=== PATIENT | female | born 1960 | race Caucasian/White ===

== ENCOUNTER 2019-11-01 06:00 | Inpatient (IN) | payer MEDICARE, OTHER ==
[2019-11-01 07:26] VITALS: BP 96/53
[2019-11-01] MEDS ORDERED: Acetaminophen 500 MG TAB PO PRN (09:27)
[2019-11-01] MEDS ORDERED: Maalox 30 mL Cup PO PRN (09:27)
[2019-11-01] MEDS ORDERED: Magnesium Hydroxide (MOM) 30 mL UDC PO PRN (09:27)
--- NOTE | 2019-11-01 12:35 | Psychiatric Evaluation ---
DATE OF SERVICE: 11/01/2019 IDENTIFYING DATA: The patient is a 59-year-old woman, resident of [facility]. Information obtained by directly interviewing the patient as well as reviewing the admission papers and they are reliable. JUSTIFICATION OF HOSPITALIZATION: The patient is admitted here on a voluntary basis in view of her agitation and aggressive behavior. CHIEF COMPLAINT: "I don't know, I did not do anything, they gave me a shot and they got me here." HISTORY OF PRESENT ILLNESS: This is the first psychiatric hospitalization to [facility] for this patient who is reported to have a long history of schizophrenia and lately has been getting easily out of control and aggressive and throwing things and destroying the property. The patient has been having difficult time to cope with the stress at this time. The patient's insight and judgment at this time are noted to be very much impaired. The patient has been downplaying everything that has been going on, but states that she needs to get back to [facility] right away. PAST PSYCHIATRIC HISTORY: Details are not known. The patient is being followed by Dr. Abreu on an outpatient basis. The patient is currently on Seroquel and lithium. Medical examination is requested to be done by Dr. Leong. SUBSTANCE ABUSE HISTORY: None. PHYSICAL OR SEXUAL ABUSE HISTORY: None. SOCIAL HISTORY: The patient is a resident of [facility]. 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 The patient has only one sister. The patient does not have any children. LEGAL PROBLEMS: None at this time. PHYSICAL OR SEXUAL ABUSE HISTORY: None. STRENGTH AND ASSETS: The patient is motivated. MENTAL STATUS EXAMINATION: The patient is a 59-year-old, looking her stated age, superficially cooperative. Eye contact is poor. Mood is noted to be irritable. Affect is constricted. Insight and judgment are noted to be still impaired. Impulse control is noted to be poor. Coping skills are noted to be poor. The patient has paranoia, but denies any command hallucinations. The patient has been having acute mood swings. The patient is not able to contract for safety. The patient has been downplaying all the problems and is stating that there is no reason for her to be in here, she needs to be out there at [facility]. The patient is alert and oriented to time, place, person and situation. Attention span and concentration are noted to be fair at this time. Short and long-term are noted to be intact. However, the patient's behavior is equally danger to self and others. DIAGNOSTIC IMPRESSION: AXIS I: Bipolar disorder, mixed, with psychotic symptoms. 1B: Rule out schizoaffective disorder. AXIS II: None. AXIS III: As per Dr. Leong. IMMEDIATE TREATMENT PLAN: The patient is going to be observed on inpatient unit, provided with supportive psychotherapy. The patient is going to be closely monitored. I encouraged her to participate in the groups and verbalize the concerns. Once stabilized, the patient is going to be discharged to [facility] to be followed up on an outpatient basis. JOB# [id number]
[2019-11-01] MEDS ORDERED: GLUCAGON HCl 1 MG KIT IM PRN (13:42)
--- NOTE | 2019-11-01 17:15 | Consultation ---
DATE OF CONSULTATION: 11/01/2019 INTERNAL MEDICINE CONSULTATION CHIEF COMPLAINT: Agitation. I am seeing this patient at the request of Dr. Lorenzana. HISTORY OF PRESENT ILLNESS: We have a 59-year-old female with bipolar, schizophrenia, who was transferred for agitation. The patient was not very cooperative and was agitated and screaming at the nursing staff. At this time, the patient denies any chest pain, shortness of breath. No nausea, vomiting, abdominal pain. PAST MEDICAL HISTORY: 1. COPD. 2. Diabetes. 3. Schizophrenia. PAST SURGICAL HISTORY: None. MEDICATIONS: List reviewed. ALLERGIES: None. SOCIAL HISTORY: Tobacco, IV drugs, ETOH negative. PHYSICAL EXAMINATION: VITAL SIGNS: Temperature is 97.0, pulse 55, respirations 18, blood pressure 196/53, satting 100% on room air. HEENT: Normocephalic, atraumatic head exam. NECK: Supple. CARDIOVASCULAR: Regular rate and rhythm. LUNGS: Clear. ABDOMEN: Soft, nontender. EXTREMITIES: No edema, cyanosis or clubbing. ASSESSMENT AND PLAN: 1. Diabetes. 2. Chronic obstructive pulmonary disease. 3. Schizophrenia. 4. Bipolar. The patient will be admitted for agitation. We will co-manage. JOB# [id number]
[2019-11-02] MEDS: Multivitamin Tab PO SCH (09:18)
--- NOTE | 2019-11-02 11:57 | Progress Notes ---
DATE: 11/02/2019 SUBJECTIVE: Staff was spoken to. The patient is interviewed. Mood is noted to be irritable. Affect is constricted. The patient's insight and judgment at this time are noted to be still impaired. The patient has been responding to internal stimuli. The patient is still suicidal. No homicidal ideation is noted. The patient is not able to contract for safety. ASSESSMENT: The patient is still grossly psychotic. PLAN: To continue the patient with the supportive therapy and followup. JOB# [id number]
--- NOTE | 2019-11-02 13:45 | Internal Medicine Prog Note ---
Internal Medicine Subjective - Subjective Service Date: 11/02/19 Patient seen and examined:: without staff Patient is:: awake Per staff patient has:: no adverse event, no episodes of fall Internal Medicine Objective - Results Recent Labs: Laboratory Last Values POC Glucose 100 MG/DL (70 - 105) 11/01/19 11:14 - Physical Exam Vitals and I&O: Vital Signs Temp 97.0 F 11/01/19 10:52 Pulse 55 11/01/19 10:52 Resp 18 11/02/19 08:00 BP 96/53 11/01/19 10:52 Pulse Ox 100 11/01/19 10:52 Intake & Output 11/01/19 11/02/19 11/02/19 18:59 06:59 18:59 Intake Total 2400 300 Balance 2400 300 Weight (lbs) 57.153 kg Intake: Oral 2400 300 Other: # Voids 0 # Bowel Movements 0 Weight Source Bedscale Active Medications: Current Medications Acetaminophen (Tylenol) 650 mg PO Q4H PRN PRN Reason: Pain (Mild 1-3) Stop: 12/31/19 09:26 Acetaminophen (Tylenol Extra Strength) 1,000 mg PO Q6H PRN PRN Reason: Pain (Moderate 4-6) Stop: 12/31/19 09:26 Al Hydrox/Mg Hydrox/Simethicone (Maalox) 30 ml PO Q4HR PRN PRN Reason: GI DISTRESS Stop: 12/31/19 09:26 Dextrose (Glutose 40%) 18.75 gm PO PRN PRN PRN Reason: Blood Glucose less than 70 Stop: 12/31/19 13:41 Glucagon (Glucagen) 1 mg IM PRN PRN PRN Reason: Blood Glucose less than 70 Stop: 12/31/19 13:41 Haloperidol (Haldol) 5 mg PO BID PRN; Protocol PRN Reason: Psychosis Stop: 12/31/19 16:59 Insulin Human Lispro (Humalog Insulin Sliding Scale) 0 units SUBQ ACHS TOR; Protocol Stop: 01/01/20 16:29 [place] Carbonate (Eskalith) 300 mg PO Q12HR TOR; Protocol Stop: 12/31/19 20:59 Last Admin: 11/02/19 09:17 Dose: 300 mg Lorazepam (Ativan) 0.5 mg PO Q4HR PRN; Protocol PRN Reason: Agitation Stop: 12/31/19 10:33 Magnesium Hydroxide (Milk Of Magnesia) 30 ml PO HS PRN PRN Reason: Constipation Multivitamins/Vitamin C (Theragran) 1 tab PO DAILY TOR Stop: 01/01/20 08:59 Last Admin: 11/02/19 09:18 Dose: Not Given Quetiapine Fumarate (Seroquel) 400 mg PO BID TOR; Protocol Stop: 12/31/19 16:59 Last Admin: 11/02/19 09:17 Dose: 400 mg Zolpidem Tartrate (Ambien) 5 mg PO HS PRN PRN Reason: Insomnia Stop: 12/31/19 09:26 General: alert HEENT: NC/AT, PERRLA, EOMI Neck: No JVD Lungs: CTAB Cardiovascular: RRR, Normal S1, Normal S2 Abdomen: soft Internal Medicine Assmt/Plan - Assessment Assessment: 1. DM/HTN 2. BIPOLAR 3. AGITATION - Plan Plan: CONTINUE SUPPORTIVE CARE REVIWED BLOOD SUGAR DIARY CONTINUE SUPPORTIVE CARE D/W R.N.
[2019-11-02] MEDS: INSULIN LISPRO SLIDING SCALE 100 UNITS/ML UNIT SUBQ SCH ×2 (15:52→20:31)
[2019-11-03] MEDS: INSULIN LISPRO SLIDING SCALE 100 UNITS/ML UNIT SUBQ SCH ×4 (06:43→21:00)
[2019-11-03] MEDS: Multivitamin Tab PO SCH ×2 (08:42→08:45)
--- NOTE | 2019-11-03 10:28 | Progress Notes ---
DATE: 11/03/2019 SUBJECTIVE: Staff was spoken to. The patient is interviewed. Mood is noted to be irritable. Affect is constricted. Insight and judgment at this time are noted to be still impaired. Impulse control is noted to be limited. Coping skills are noted to be limited. The patient has been having difficult time to cope with the stress. The patient is currently on 400 mg of the Seroquel and has been able to tolerate medications. No side effects to the medications are noted. ASSESSMENT: The patient is still psychotic and impulsive and is not willing to go back to [facility]. PLAN: To continue the patient with the current medications and follow. JOB# [id number]
[2019-11-04] MEDS: INSULIN LISPRO SLIDING SCALE 100 UNITS/ML UNIT SUBQ SCH ×4 (06:42→21:35)
[2019-11-04] MEDS: Multivitamin Tab PO SCH (09:14)
--- NOTE | 2019-11-04 11:12 | Progress Notes ---
DATE: 11/04/2019 PSYCHIATRIC PROGRESS NOTE SUBJECTIVE: Staff was spoken to. The patient is interviewed. Mood is noted to be irritable. Affect is constricted. The patient has paranoid delusions, but denies any command hallucinations. Insight and judgment are noted to be still impaired. The patient is pacing on the unit. The patient is stating that she does not want to go back to the [facility] because people are after her over there. No side effects to the medications are noted at this time. ASSESSMENT: The patient is still psychotic. PLAN: To continue the patient with the current medications and followup. JOB# [id number]
--- NOTE | 2019-11-04 17:03 | Internal Medicine Prog Note ---
Internal Medicine Subjective - Subjective Service Date: 11/04/19 Patient seen and examined:: without staff Patient is:: awake Per staff patient has:: no adverse event, no episodes of fall Internal Medicine Objective - Results Recent Labs: Laboratory Last Values POC Glucose 100 MG/DL (70 - 105) 11/01/19 11:14 - Physical Exam Vitals and I&O: Vital Signs Temp 0 F 11/03/19 19:55 Pulse 55 11/01/19 10:52 Resp 18 11/03/19 08:00 BP 96/53 11/01/19 10:52 Pulse Ox 100 11/01/19 10:52 Intake & Output 11/03/19 11/04/19 11/04/19 18:59 06:59 18:59 Intake Total 1820 360 Balance 1820 360 Intake: Oral 1080 360 Other 740 Other: # Voids 4 1 # Bowel Movements 0 0 Active Medications: Current Medications Acetaminophen (Tylenol) 650 mg PO Q4H PRN PRN Reason: Pain (Mild 1-3) Stop: 12/31/19 09:26 Acetaminophen (Tylenol Extra Strength) 1,000 mg PO Q6H PRN PRN Reason: Pain (Moderate 4-6) Stop: 12/31/19 09:26 Al Hydrox/Mg Hydrox/Simethicone (Maalox) 30 ml PO Q4HR PRN PRN Reason: GI DISTRESS Stop: 12/31/19 09:26 Dextrose (Glutose 40%) 18.75 gm PO PRN PRN PRN Reason: BS Below 70 if tolerate po Stop: 12/31/19 13:41 Glucagon (Glucagen) 1 mg IM PRN PRN PRN Reason: BS Below 70 if not tolerate po Stop: 12/31/19 13:41 Haloperidol (Haldol) 5 mg PO BID PRN; Protocol PRN Reason: Psychosis Stop: 12/31/19 16:59 Insulin Human Lispro (Humalog Insulin Sliding Scale) 0 units SUBQ ACHS TOR; Protocol Stop: 01/01/20 16:29 Last Admin: 11/04/19 16:31 Dose: Not Given [place] Carbonate (Eskalith) 300 mg PO Q12HR TOR; Protocol Stop: 12/31/19 20:59 Last Admin: 11/04/19 09:13 Dose: 300 mg Lorazepam (Ativan) 0.5 mg PO Q4HR PRN; Protocol PRN Reason: Agitation Stop: 12/31/19 10:33 Magnesium Hydroxide (Milk Of Magnesia) 30 ml PO HS PRN PRN Reason: Constipation Multivitamins/Vitamin C (Theragran) 1 tab PO DAILY TOR Stop: 01/01/20 08:59 Last Admin: 11/04/19 09:14 Dose: Not Given Quetiapine Fumarate (Seroquel) 400 mg PO BID TOR; Protocol Stop: 12/31/19 16:59 Last Admin: 11/04/19 09:13 Dose: 400 mg Zolpidem Tartrate (Ambien) 5 mg PO HS PRN PRN Reason: Insomnia Stop: 12/31/19 09:26 General: alert HEENT: NC/AT, PERRLA, EOMI Neck: No JVD Lungs: CTAB Cardiovascular: RRR, Normal S1, Normal S2 Abdomen: soft Internal Medicine Assmt/Plan - Assessment Assessment: 1. DM/HTN 2. BIPOLAR 3. AGITATION - Plan Plan: CONTINUE SUPPORTIVE CARE REVIWED BLOOD SUGAR DIARY CONTINUE SUPPORTIVE CARE D/W R.N.
[2019-11-05] MEDS: INSULIN LISPRO SLIDING SCALE 100 UNITS/ML UNIT SUBQ SCH ×4 (08:19→20:18)
[2019-11-05] MEDS: Multivitamin Tab PO SCH (08:23)
--- NOTE | 2019-11-05 18:43 | Progress Notes ---
DATE: 11/05/2019 SUBJECTIVE: Staff was spoken to. The patient is interviewed. Mood is noted to be irritable. Affect is constricted. The patient's coping skills are noted to be extremely poor. The patient is paranoid, pacing on the unit most of the time. The patient is stating that she does not want to go back to [facility] and she wants her belongings to be in here. The patient is still accusing people trying to hurt her if she were going to go back over there. ASSESSMENT: The patient is still psychotic and paranoid. PLAN: To continue the patient with the supportive therapy and continue current medications and followup. The patient is encouraged to verbalize the concerns rather than to act out. The patient is currently on the lithium 300 mg 3 times a day and is also on Seroquel 400 mg b.i.d. and has been able to tolerate the medication. JOB# [id number]
[2019-11-06] MEDS: INSULIN LISPRO SLIDING SCALE 100 UNITS/ML UNIT SUBQ SCH ×4 (07:30→21:10)
[2019-11-06] MEDS: Multivitamin Tab PO SCH (08:35)
--- NOTE | 2019-11-06 10:50 | Progress Notes ---
DATE: 11/06/2019 SUBJECTIVE: Staff was spoken to. The patient is interviewed. Mood is noted to be irritable. Affect is constricted. Insight and judgment at this time are noted to be still impaired. Impulse control is noted to be limited. Coping skills are noted to be limited. The patient has been paranoid still and has been pacing most of the time on the unit. No side effects to the medications are noted. The patient has been compliant with the Seroquel, but the patient is very reluctant to get back to the [facility]. ASSESSMENT: The patient is still presenting as a threat to self and others. PLAN: To continue the patient with the current medications and followup. [facility]# [id number]
--- NOTE | 2019-11-06 11:28 | Consultation ---
DATE OF CONSULTATION: 11/04/2019 REQUESTING PHYSICIAN: Iwona Khoury M.D. TYPE OF CONSULTATION: Psychology. HISTORY OF PRESENT ILLNESS: The patient is a 59-year-old female. The patient is a resident of [facility] and is seen there by Dr. Abreu. The following is by review of the medical record as well as by the patient's report. The patient is being admitted due to acute agitation and aggressive behavior. The staff at the patient's facility report that she has been getting aggressive and was uncontrollable i.e., throwing things and destroying property. Upon interview, the patient stated that she did not do anything and that she was given a shot to calm down and then transferred here. The patient is demanding to return to [facility] immediately. The patient is very agitated, angry and is not responding to the clinical interview questions. PAST MEDICAL HISTORY: Please see history and physical, Dr. Martinez. PAST PSYCHIATRIC HISTORY: The patient is followed by Dr. Abreu at [facility]. The patient has a history of previous hospitalizations. SUBSTANCE ABUSE HISTORY: The patient refused to answer these questions. 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 She did not verify. Patient states she has one sister who is involved in her care. The patient states that she is single with no children. The patient did not answer questions about occupational or educational history. The patient did not answer questions about history of physical or sexual abuse or any current legal problems. The patient is demanding to return to her retirement facility immediately. MENTAL STATUS EXAMINATION: The patient appears to be her stated age. The patient's attitude is guarded and uncooperative. Eye contact is avoidant and poor. Speech is loud with yelling episodes. Mood is irritable. Affect is constricted. Thought process shows to be confused with perseveration on being discharged. The patient is denying any aggressive behavior. There seems to be possible paranoid ideation. The patient denied any command type of hallucinations. There may be persecutory type delusions. This needs further evaluation. The patient denied any suicidal or homicidal ideation, plan or intention. It appears the patient's mood is fluctuating and cycling. The patient was unable to verbally contract for safety. The patient's behavior has been difficult to redirect and she is easily frustrated. The patient is minimizing her current problems. Impulse control is inadequate. Concentration is fair. The patient is able to repeat 3 items given to her the first time. The patient did not participate in the rest of the memory assessment. Short-term and long-term memory need further evaluation, but appears to have deficits. Sensorium is alert and oriented to person, place, and situation. The patient did not participate in the interpretation of proverbs. Insight is poor. Judgment is impaired. DIAGNOSTIC IMPRESSION: AXIS I: Bipolar disorder, mixed, with psychotic symptoms. AXIS II: Deferred. AXIS III: Per Dr. Leong. TREATMENT PLAN: The patient has been seen by Dr. Khoury for psychiatric evaluation and for the management of the patient's psychotropic medications. We will provide supportive psychotherapy to include reality orientation, differentiation and integration. We will provide de-escalation and limit setting and behavioral management with respect to the patient's striking out and aggressive behaviors. We will provide anger management as well as stress management to assist the patient in increasing her frustration tolerance and to be able to verbalize her concerns versus acting out. We will provide motivational enhancement for the patient to become compliant and stay compliant with all aspects of her care and treatment. We will also provide coping strategies for chronic severe mental illness as well as for phase of life issues. We will follow up in 2-3 days to continue the present treatment. Thank you, Dr. Abreu and Dr. Khoury for this consult and the opportunity to participate with both of you in this patient's care. [facility]# [id number] JAMES
--- NOTE | 2019-11-06 15:27 | Internal Medicine Prog Note ---
Internal Medicine Subjective - Subjective Service Date: 11/06/19 Patient seen and examined:: without staff Patient is:: awake Per staff patient has:: no adverse event, no episodes of fall Internal Medicine Objective - Results Recent Labs: Laboratory Last Values POC Glucose 76 MG/DL (70 - 105) 11/05/19 12:55 - Physical Exam Vitals and I&O: Vital Signs Temp 0 F 11/03/19 19:55 Pulse 85 11/05/19 13:00 Resp 18 11/05/19 13:00 BP 96/53 11/01/19 10:52 Pulse Ox 94 11/05/19 13:00 Intake & Output 11/05/19 11/06/19 11/06/19 18:59 06:59 18:59 Intake Total 900 120 Balance 900 120 Intake: Oral 900 120 Other: # Voids 3 2 # Bowel Movements 1 0 Active Medications: Current Medications Acetaminophen (Tylenol) 650 mg PO Q4H PRN PRN Reason: Pain (Mild 1-3) Stop: 12/31/19 09:26 Acetaminophen (Tylenol Extra Strength) 1,000 mg PO Q6H PRN PRN Reason: Pain (Moderate 4-6) Stop: 12/31/19 09:26 Al Hydrox/Mg Hydrox/Simethicone (Maalox) 30 ml PO Q4HR PRN PRN Reason: GI DISTRESS Stop: 12/31/19 09:26 Dextrose (Glutose 40%) 18.75 gm PO PRN PRN PRN Reason: BS Below 70 if tolerate po Stop: 12/31/19 13:41 Glucagon (Glucagen) 1 mg IM PRN PRN PRN Reason: BS Below 70 if not tolerate po Stop: 12/31/19 13:41 Haloperidol (Haldol) 5 mg PO BID PRN; Protocol PRN Reason: Psychosis Stop: 12/31/19 16:59 Insulin Human Lispro (Humalog Insulin Sliding Scale) 0 units SUBQ ACHS TOR; Protocol Stop: 01/01/20 16:29 Last Admin: 11/06/19 11:30 Dose: Not Given [place] Carbonate (Eskalith) 300 mg PO Q12HR TOR; Protocol Stop: 12/31/19 20:59 Last Admin: 11/06/19 08:35 Dose: 300 mg Lorazepam (Ativan) 0.5 mg PO Q4HR PRN; Protocol PRN Reason: Agitation Stop: 12/31/19 10:33 Magnesium Hydroxide (Milk Of Magnesia) 30 ml PO HS PRN PRN Reason: Constipation Multivitamins/Vitamin C (Theragran) 1 tab PO DAILY TOR Stop: 01/01/20 08:59 Last Admin: 11/06/19 08:35 Dose: 1 tab Mupirocin (Bactroban Oint) 1 appl NS BID TOR Stop: 11/09/19 17:01 Last Admin: 11/06/19 08:35 Dose: 1 appl Quetiapine Fumarate (Seroquel) 400 mg PO BID TOR; Protocol Stop: 12/31/19 16:59 Last Admin: 11/06/19 08:35 Dose: 400 mg Zolpidem Tartrate (Ambien) 5 mg PO HS PRN PRN Reason: Insomnia Stop: 12/31/19 09:26 General: alert HEENT: NC/AT, PERRLA, EOMI Neck: No JVD Lungs: CTAB Cardiovascular: RRR, Normal S1, Normal S2 Abdomen: soft Internal Medicine Assmt/Plan - Assessment Assessment: 1. DM/HTN 2. BIPOLAR 3. AGITATION - Plan Plan: CONTINUE SUPPORTIVE CARE REVIWED BLOOD SUGAR DIARY CONTINUE SUPPORTIVE CARE D/W R.N. Nutritional Asmnt/Malnutr-PDOC - Dietary Evaluation Malnutrition Findings (Please click <Entered> for more info): Nutritional Asmnt/Malnutrition Start: 11/05/19 14: 11 Text: Status: Complete Freq: Protocol: Document 11/05/19 14:11 INES (Rec: 11/05/19 14:14 INES [id number]) Nutritional Asmnt/Malnutrition Patient General Information Nutritional Screening Moderate Risk Diagnosis Psychosis Pertinent Medical Hx/Surgical Hx COPD, DM, Schizophrenia Subjective Information Pt is a 59-year-old female admitted on 10/31 d/t agitation with screaming. Pt is eating an estimated 90% of meals Per Meal/Nutrition Activity Record . Dietary is currently providing an estimated 1700 kcals and 90 gm Pro, per Pt PO intake this is providing an estimated 1500 kcals and 80gm Pro to meet 100% kcal and 100+ % Pro needs. Visited pt in room, pt was asleep and did not stir when name was called. Anthropometrics HT: 54 WT: 126 LB (57.27 kg) BMI: 21.63 (normal) GI/ Skin Integrity GI: WNL, Soft, Non-tender BM: 11/03 x1 I/O: 1840/Not Noted Skin: WNL, Intact Cheko: 20 Diet Order: [facility] Estimated Energy Needs: ( Geriatric, CBW) 2091-6474 kcals (25-30 kcals/ kg) 60-70g Pro (1.0-1.2 g/kg) 5551-6792 ml (25-30 ml/kg) Current Diet Order/ Nutrition Support [facility] Pertinent Medications Maalox (PRN), Glutose 40% (PRN ), INS-SS, MOM (PRN), Theragran Pertinent Labs 10/31: POC Glucose 100, HDL 43, A1c 5.2%, K 3.2, Glucose 130, Ca 8.3, GFR 53, Alk Phos 121, Alb 3.2 Nutritional Hx/Data Height 1.63 m Height (Calculated Centimeters) 162.6 Current Weight (lbs) 57.153 kg Weight (Calculated Kilograms) 57.2 Weight (Calculated Grams) 34579.6 [place] Body Weight 120 LB (54.55 kg) % [place] Body Weight 105 Body Mass Index (BMI) 21.6 Weight Status Approriate GI Symptoms GI Symptoms None Last BM 11/03 x1 Skin Integrity/Comment: Skin: WNL, Intact Cheko: 20 Estimated Nutritional Goals BEE in Kcals: Using Current wt Calories/Kcals/Kg 25-30 Kcals Calculated 2371-1230 Protein: Using Current wt Protein g/k.0-1.2 Protein Calculated 60-70 Fluid: ml 8677-5837 ml (25-30 ml/kg) Nutritional Problem 1. Problem Problem Impaired nutrient utilization Etiology r/t endocrine dysfunction Signs/Symptoms: aeb Hx DM, labs (10/31) glucose 130, A1c 5.2%. Malnutrition Related to Morbid Obesity Malnutrition related to morbid obesity No Intervention/Recommendation Comments 1.Continue [facility] diet as tolerated. 2.Continue antihyperglycemic medication for glucose control per MD order. Expected Outcomes/Goals Expected Outcomes/Goals 1.PO intake to continue to meet >75% of estimated nutritional needs. 2.Monitor PO intake, wt, nutrition related labs, and skin integrity. 3.F/U as low risk in 7-10 days , 11/11-11/14.
[2019-11-07] MEDS: INSULIN LISPRO SLIDING SCALE 100 UNITS/ML UNIT SUBQ SCH ×4 (06:31→21:00)
--- NOTE | 2019-11-07 08:38 | Progress Notes ---
DATE: 11/07/2019 SUBJECTIVE: Staff was spoken to. The patient is interviewed. Mood is noted to be irritable. Affect is constricted. Insight and judgment at this time are noted to be still impaired. Impulse control is noted to be limited. Coping skills are noted to be limited. The patient has been having paranoid delusions. The patient has been having difficult time to cope with the stress. The patient is very demanding, intrusive. The patient is currently on 400 mg twice of the Seroquel, but that does not seem to be doing anything and hence, I have decided to increase the dose on the lithium to 300 mg 3 times a day and follow the patient with the supportive therapy. JOB# [id number]
[2019-11-07] MEDS: Multivitamin Tab PO SCH (08:44)
--- NOTE | 2019-11-07 10:54 | Progress Notes ---
DATE: 11/06/2019 PSYCHOLOGY PROGRESS NOTE SUBJECTIVE: The patient is in her room with the door closed. The patient is not answering knocks on the door. This signwriter requested the treatment nurse to ask the patient to open the door. The patient complied and then immediately began a tirade and anger outburst, stating that no one should ever open up her room door and that she was not going to participate in any kind of interview or any type of treatment. The patient continues to have paranoid delusions according to the staff. The patient is difficult to redirect and is very demanding and intrusive according to staff. OBJECTIVE: Mood is irritable and angry. Affect is mood congruent and reactive. Thought process includes paranoid ideation with confusion, and at times, irrelevant answers to clinical questions. The patient denied experiencing any auditory hallucinations either persecutory or command type. However, the patient is verbalizing that she feels she has been hospitalized against her will. The patient's behavior has been demanding and intrusive as well as easily agitated with poor redirectability. ASSESSMENT: The patient's psychosis and agitation persist. PLAN: The attending psychiatrist reports an increase on the lithium to 300 mg 3 times a day. We provided de-escalation as well as cognitive refocusing and redirection. The patient responded poorly. We provided reality testing and integration. The patient responded poorly. The patient is having difficulty following through with staff direction as well as the treatment protocols. We provided remotivation for the patient to become compliant and stay compliant with all aspects of her care and treatment. We provided de-escalation as well as anger management and stress management to assist the patient in increasing her frustration tolerance and becoming more compliant. We will follow up in 2-3 days if the patient remains on the unit and is able to demonstrate the capacity to benefit from psychology services. JOB# [id number] JAMES
--- NOTE | 2019-11-07 12:18 | Internal Medicine Prog Note ---
Internal Medicine Subjective - Subjective Service Date: 11/07/19 Patient seen and examined:: without staff Patient is:: awake Per staff patient has:: no adverse event, no episodes of fall Internal Medicine Objective - Results Recent Labs: Laboratory Last Values POC Glucose 76 MG/DL (70 - 105) 11/05/19 12:55 - Physical Exam Vitals and I&O: Vital Signs Temp 0 F 11/03/19 19:55 Pulse 85 11/05/19 13:00 Resp 18 11/05/19 13:00 BP 96/53 11/01/19 10:52 Pulse Ox 94 11/05/19 13:00 Intake & Output 11/06/19 11/07/19 11/07/19 18:59 06:59 18:59 Intake Total 1200 240 Balance 1200 240 Intake: Oral 1200 240 Other: # Voids 2 # Bowel Movements 1 0 Active Medications: Current Medications Acetaminophen (Tylenol) 650 mg PO Q4H PRN PRN Reason: Pain (Mild 1-3) Stop: 12/31/19 09:26 Acetaminophen (Tylenol Extra Strength) 1,000 mg PO Q6H PRN PRN Reason: Pain (Moderate 4-6) Stop: 12/31/19 09:26 Al Hydrox/Mg Hydrox/Simethicone (Maalox) 30 ml PO Q4HR PRN PRN Reason: GI DISTRESS Stop: 12/31/19 09:26 Dextrose (Glutose 40%) 18.75 gm PO PRN PRN PRN Reason: BS Below 70 if tolerate po Stop: 12/31/19 13:41 Glucagon (Glucagen) 1 mg IM PRN PRN PRN Reason: BS Below 70 if not tolerate po Stop: 12/31/19 13:41 Haloperidol (Haldol) 5 mg PO BID PRN; Protocol PRN Reason: Psychosis Stop: 12/31/19 16:59 Insulin Human Lispro (Humalog Insulin Sliding Scale) 0 units SUBQ ACHS [facility]; Protocol Stop: 01/01/20 16:29 Last Admin: 11/07/19 12:01 Dose: Not Given [place] Carbonate (Eskalith) 300 mg PO TID [facility]; Protocol Stop: 01/06/20 08:59 Last Admin: 11/07/19 09:25 Dose: 300 mg Lorazepam (Ativan) 0.5 mg PO Q4HR PRN; Protocol PRN Reason: Agitation Stop: 12/31/19 10:33 Magnesium Hydroxide (Milk Of Magnesia) 30 ml PO HS PRN PRN Reason: Constipation Multivitamins/Vitamin C (Theragran) 1 tab PO DAILY TOR Stop: 01/01/20 08:59 Last Admin: 11/07/19 08:44 Dose: 1 tab Mupirocin (Bactroban Oint) 1 appl NS BID TOR Stop: 11/09/19 17:01 Last Admin: 11/07/19 08:44 Dose: 1 appl Quetiapine Fumarate (Seroquel) 400 mg PO BID [facility]; Protocol Stop: 12/31/19 16:59 Last Admin: 11/07/19 08:44 Dose: 400 mg Zolpidem Tartrate (Ambien) 5 mg PO HS PRN PRN Reason: Insomnia Stop: 12/31/19 09:26 General: alert HEENT: NC/AT, PERRLA, EOMI Neck: No JVD Lungs: CTAB Cardiovascular: RRR, Normal S1, Normal S2 Abdomen: soft Internal Medicine Assmt/Plan - Assessment Assessment: 1. DM/HTN 2. BIPOLAR 3. AGITATION - Plan Plan: CONTINUE SUPPORTIVE CARE REVIWED BLOOD SUGAR DIARY CONTINUE SUPPORTIVE CARE D/W R.N. Nutritional Asmnt/Malnutr-PDOC - Dietary Evaluation Malnutrition Findings (Please click <Entered> for more info): Nutritional Asmnt/Malnutrition Start: 11/05/19 14: 11 Text: Status: Complete Freq: Protocol: Document 11/05/19 14:11 INES (Rec: 11/05/19 14:14 INES [email or web address]) Nutritional Asmnt/Malnutrition Patient General Information Nutritional Screening Moderate Risk Diagnosis Psychosis Pertinent Medical Hx/Surgical Hx COPD, DM, Schizophrenia Subjective Information Pt is a 59-year-old female admitted on 10/31 d/t agitation with screaming. Pt is eating an estimated 90% of meals Per Meal/Nutrition Activity Record . Dietary is currently providing an estimated 1700 kcals and 90 gm Pro, per Pt PO intake this is providing an estimated 1500 kcals and 80gm Pro to meet 100% kcal and 100+ % Pro needs. Visited pt in room, pt was asleep and did not stir when name was called. Anthropometrics HT: 54 WT: 126 LB (57.27 kg) BMI: 21.63 (normal) GI/ Skin Integrity GI: WNL, Soft, Non-tender BM: 11/03 x1 I/O: 1840/Not Noted Skin: WNL, Intact Cheko: 20 Diet Order: [facility] Estimated Energy Needs: ( Geriatric, CBW) 9391-2108 kcals (25-30 kcals/ kg) 60-70g Pro (1.0-1.2 g/kg) 0954-6449 ml (25-30 ml/kg) Current Diet Order/ Nutrition Support [facility] Pertinent Medications Maalox (PRN), Glutose 40% (PRN ), INS-SS, MOM (PRN), Theragran Pertinent Labs 10/31: POC Glucose 100, HDL 43, A1c 5.2%, K 3.2, Glucose 130, Ca 8.3, GFR 53, Alk Phos 121, Alb 3.2 Nutritional Hx/Data Height 1.63 m Height (Calculated Centimeters) 162.6 Current Weight (lbs) 57.153 kg Weight (Calculated Kilograms) 57.2 Weight (Calculated Grams) 72207.6 [place] Body Weight 120 LB (54.55 kg) % [place] Body Weight 105 Body Mass Index (BMI) 21.6 Weight Status Approriate GI Symptoms GI Symptoms None Last BM 11/03 x1 Skin Integrity/Comment: Skin: WNL, Intact Cheko: 20 Estimated Nutritional Goals BEE in Kcals: Using Current wt Calories/Kcals/Kg 25-30 Kcals Calculated 6115-9972 Protein: Using Current wt Protein g/k.0-1.2 Protein Calculated 60-70 Fluid: ml 6161-7565 ml (25-30 ml/kg) Nutritional Problem 1. Problem Problem Impaired nutrient utilization Etiology r/t endocrine dysfunction Signs/Symptoms: aeb Hx DM, labs (10/31) glucose 130, A1c 5.2%. Malnutrition Related to Morbid Obesity Malnutrition related to morbid obesity No Intervention/Recommendation Comments 1.Continue [facility] diet as tolerated. 2.Continue antihyperglycemic medication for glucose control per MD order. Expected Outcomes/Goals Expected Outcomes/Goals 1.PO intake to continue to meet >75% of estimated nutritional needs. 2.Monitor PO intake, wt, nutrition related labs, and skin integrity. 3.F/U as low risk in 7-10 days , 11/11-11/14.
[2019-11-08] MEDS: INSULIN LISPRO SLIDING SCALE 100 UNITS/ML UNIT SUBQ SCH ×4 (06:52→20:51)
[2019-11-08] MEDS: Multivitamin Tab PO SCH (09:19)
--- NOTE | 2019-11-08 13:11 | Progress Notes ---
DATE: 11/08/2019 SUBJECTIVE: Staff was spoken to. The patient is interviewed. Mood is noted to be irritable. The patient is stating the medication is making her too sleepy. The patient is still endorsing to auditory hallucinations, but no command hallucinations are noted. Insight and judgment are noted to be still impaired. Impulse control seems to be limited. The patient is stating that she does not like the [facility] and has been very resistive in dealing with the case management. ASSESSMENT: The patient is still psychotic. PLAN: To continue the patient with the current medications and followup. JOB# [id number]
[2019-11-09] MEDS: INSULIN LISPRO SLIDING SCALE 100 UNITS/ML UNIT SUBQ SCH ×4 (06:49→20:23)
[2019-11-09] MEDS: Multivitamin Tab PO SCH (08:39)
--- NOTE | 2019-11-09 10:32 | Progress Notes ---
DATE: 11/08/2019 PSYCHOLOGY PROGRESS NOTE SUBJECTIVE: The patient is seen in her room and is interviewed. Case has been discussed with staff. The patient continues to present as guarded, suspicious and irritable. The patient stated that she does not want to take her medication because it makes her too fatigued and too drowsy. The patient's impulse control is poor. The staff reports that the patient is very resistive to her care and treatment and very difficult to redirect behaviorally and cognitively. OBJECTIVE: Mood is irritable and fluctuating. Affect is constricted. Thought process includes endorsement of auditory hallucinations. The patient denied that these are command type. There does seem to be evidence that these are based on suspiciousness and are persecutory type. The patient denied any suicidal ideation, plan or intention. The patient is very demanding and is repeating that she needs to be discharged immediately and return to her jail facility. Staff reports intermittent anger outbursts and refusal of care. ASSESSMENT: The patient's psychosis persists. The patient's agitation and resistance to treatment also persist. PLAN: The patient was provided with remotivation to become compliant and stay compliant with all aspects of her care and treatment. We encouraged the patient to continue to verbalize her concerns and to acknowledge that she is in a hospital and being treated here for her current problems. We provided reality differentiation and integration to assist the patient in being able to focus on reality-based thoughts versus delusional thought. We provided stress management for the patient to increase her frustration tolerance and be more accepting of the treatment being offered. We provided coping strategies for phase of life issues as well as for chronic severe mental illness. We will continue to encourage the patient to participate in her treatment and accept the current medication regimen versus acting out and refusal of care. We will follow up in 2-3 days to continue the present treatment if the patient remains on the unit and is able to demonstrate the capacity to benefit from psychology services. [facility]# [id number] JAMES
--- NOTE | 2019-11-09 23:40 | Progress Notes ---
DATE: 11/09/2019 PSYCHIATRIC PROGRESS NOTE SUBJECTIVE: Staff was spoken to. The patient is interviewed. Mood is noted to be irritable. Affect is constricted. The patient's insight and judgment are noted to be still impaired. Impulse control seems to be limited. The patient has been having difficult time to cope with the stress. No side effects to the medications are noted at this time. The patient has been paranoid, but denies any command hallucinations. ASSESSMENT: The patient is still psychotic. PLAN: To continue the patient with the current medications. I encouraged the patient to verbalize the concerns rather than to act out. JOB# [id number]
[2019-11-10] MEDS: INSULIN LISPRO SLIDING SCALE 100 UNITS/ML UNIT SUBQ SCH ×4 (06:33→20:35)
[2019-11-10] MEDS: Multivitamin Tab PO SCH (08:19)
--- NOTE | 2019-11-10 13:58 | Internal Medicine Prog Note ---
Internal Medicine Subjective - Subjective Service Date: 11/10/19 Patient is:: awake Per staff patient has:: no adverse event, no episodes of fall Internal Medicine Objective - Results Recent Labs: Laboratory Last Values POC Glucose 76 MG/DL (70 - 105) 11/05/19 12:55 - Physical Exam Vitals and I&O: Vital Signs Temp 0 F 11/10/19 06:06 Pulse 85 11/05/19 13:00 Resp 15 11/10/19 07:25 BP 96/53 11/01/19 10:52 Pulse Ox 94 11/05/19 13:00 Intake & Output 11/09/19 11/10/19 11/10/19 18:59 06:59 18:59 Intake Total 850 Balance 850 Intake: Oral 850 Other: # Voids 3 # Bowel Movements 0 Stool Characteristics Formed Active Medications: Current Medications Acetaminophen (Tylenol) 650 mg PO Q4H PRN PRN Reason: Pain (Mild 1-3) Stop: 12/31/19 09:26 Last Admin: 11/09/19 09:35 Dose: 650 mg Acetaminophen (Tylenol Extra Strength) 1,000 mg PO Q6H PRN PRN Reason: Pain (Moderate 4-6) Stop: 12/31/19 09:26 Al Hydrox/Mg Hydrox/Simethicone (Maalox) 30 ml PO Q4HR PRN PRN Reason: GI DISTRESS Stop: 12/31/19 09:26 Dextrose (Glutose 40%) 18.75 gm PO PRN PRN PRN Reason: BS Below 70 if tolerate po Stop: 12/31/19 13:41 Glucagon (Glucagen) 1 mg IM PRN PRN PRN Reason: BS Below 70 if not tolerate po Stop: 12/31/19 13:41 Haloperidol (Haldol) 5 mg PO BID PRN; Protocol PRN Reason: Psychosis Stop: 12/31/19 16:59 Insulin Human Lispro (Humalog Insulin Sliding Scale) 0 units SUBQ ACHS [facility]; Protocol Stop: 01/01/20 16:29 Last Admin: 11/10/19 11:30 Dose: Not Given [place] Carbonate (Eskalith) 300 mg PO TID [facility]; Protocol Stop: 01/06/20 08:59 Last Admin: 11/10/19 13:38 Dose: 300 mg Lorazepam (Ativan) 0.5 mg PO Q4HR PRN; Protocol PRN Reason: Agitation Stop: 12/31/19 10:33 Magnesium Hydroxide (Milk Of Magnesia) 30 ml PO HS PRN PRN Reason: Constipation Multivitamins/Vitamin C (Theragran) 1 tab PO DAILY TOR Stop: 01/01/20 08:59 Last Admin: 11/10/19 08:19 Dose: 1 tab Quetiapine Fumarate (Seroquel) 400 mg PO BID TOR; Protocol Stop: 12/31/19 16:59 Last Admin: 11/10/19 08:19 Dose: 400 mg Zolpidem Tartrate (Ambien) 5 mg PO HS PRN PRN Reason: Insomnia Stop: 12/31/19 09:26 Last Admin: 11/08/19 20:54 Dose: 5 mg General: alert HEENT: NC/AT, PERRLA, EOMI Neck: No JVD Lungs: CTAB Cardiovascular: RRR, Normal S1, Normal S2 Abdomen: soft Internal Medicine Assmt/Plan - Assessment Assessment: 1. DM/HTN 2. BIPOLAR 3. AGITATION - Plan Plan: CONTINUE SUPPORTIVE CARE REVIWED BLOOD SUGAR DIARY CONTINUE SUPPORTIVE CARE D/W R.N. Nutritional Asmnt/Malnutr-PDOC - Dietary Evaluation Malnutrition Findings (Please click <Entered> for more info): Nutritional Asmnt/Malnutrition Start: 11/05/19 14: 11 Text: Status: Complete Freq: Protocol: Document 11/05/19 14:11 INES (Rec: 11/05/19 14:14 INES [email or web address]) Nutritional Asmnt/Malnutrition Patient General Information Nutritional Screening Moderate Risk Diagnosis Psychosis Pertinent Medical Hx/Surgical Hx COPD, DM, Schizophrenia Subjective Information Pt is a 59-year-old female admitted on 10/31 d/t agitation with screaming. Pt is eating an estimated 90% of meals Per Meal/Nutrition Activity Record . Dietary is currently providing an estimated 1700 kcals and 90 gm Pro, per Pt PO intake this is providing an estimated 1500 kcals and 80gm Pro to meet 100% kcal and 100+ % Pro needs. Visited pt in room, pt was asleep and did not stir when name was called. Anthropometrics HT: 54 WT: 126 LB (57.27 kg) BMI: 21.63 (normal) GI/ Skin Integrity GI: WNL, Soft, Non-tender BM: 11/03 x1 I/O: 1840/Not Noted Skin: WNL, Intact Cheko: 20 Diet Order: [facility] Estimated Energy Needs: ( Geriatric, CBW) 8589-9967 kcals (25-30 kcals/ kg) 60-70g Pro (1.0-1.2 g/kg) 9768-8045 ml (25-30 ml/kg) Current Diet Order/ Nutrition Support [facility] Pertinent Medications Maalox (PRN), Glutose 40% (PRN ), INS-SS, MOM (PRN), Theragran Pertinent Labs 10/31: POC Glucose 100, HDL 43, A1c 5.2%, K 3.2, Glucose 130, Ca 8.3, GFR 53, Alk Phos 121, Alb 3.2 Nutritional Hx/Data Height 1.63 m Height (Calculated Centimeters) 162.6 Current Weight (lbs) 57.153 kg Weight (Calculated Kilograms) 57.2 Weight (Calculated Grams) 29021.6 [place] Body Weight 120 LB (54.55 kg) % [place] Body Weight 105 Body Mass Index (BMI) 21.6 Weight Status Approriate GI Symptoms GI Symptoms None Last BM 11/03 x1 Skin Integrity/Comment: Skin: WNL, Intact Cheko: 20 Estimated Nutritional Goals BEE in Kcals: Using Current wt Calories/Kcals/Kg 25-30 Kcals Calculated 9619-3623 Protein: Using Current wt Protein g/k.0-1.2 Protein Calculated 60-70 Fluid: ml 2695-5315 ml (25-30 ml/kg) Nutritional Problem 1. Problem Problem Impaired nutrient utilization Etiology r/t endocrine dysfunction Signs/Symptoms: aeb Hx DM, labs (10/31) glucose 130, A1c 5.2%. Malnutrition Related to Morbid Obesity Malnutrition related to morbid obesity No Intervention/Recommendation Comments 1.Continue [facility] diet as tolerated. 2.Continue antihyperglycemic medication for glucose control per MD order. Expected Outcomes/Goals Expected Outcomes/Goals 1.PO intake to continue to meet >75% of estimated nutritional needs. 2.Monitor PO intake, wt, nutrition related labs, and skin integrity. 3.F/U as low risk in 7-10 days , 11/11-11/14.
--- NOTE | 2019-11-10 23:11 | Progress Notes ---
DATE: 11/10/2019 SUBJECTIVE: Staff was spoken to. The patient is interviewed. Mood is noted to be irritable. Affect is constricted. The patient is pacing most of the time on the unit. Insight and judgment at this time are noted to be still impaired. Impulse control is noted to be limited. Coping skills are also noted to be limited. The patient has been having difficult time to cope with the stress. No side effects to the medications are noted. ASSESSMENT: The patient is still impulsive. PLAN: To continue the patient with the current medications. I encouraged the patient to verbalize the concerns rather than to act out. JOB# [id number]
[2019-11-11] MEDS: INSULIN LISPRO SLIDING SCALE 100 UNITS/ML UNIT SUBQ SCH ×5 (07:27→21:00)
[2019-11-11] MEDS: Multivitamin Tab PO SCH (08:29)
--- NOTE | 2019-11-11 14:59 | Internal Medicine Prog Note ---
Internal Medicine Subjective - Subjective Service Date: 11/11/19 Patient is:: awake Per staff patient has:: no adverse event, no episodes of fall Internal Medicine Objective - Results Recent Labs: Laboratory Last Values POC Glucose 75 MG/DL (70 - 105) 11/11/19 11:25 - Physical Exam Vitals and I&O: Vital Signs Temp 0 F 11/10/19 06:06 Pulse 85 11/05/19 13:00 Resp 20 11/11/19 14:00 BP 96/53 11/01/19 10:52 Pulse Ox 94 11/05/19 13:00 Intake & Output 11/10/19 11/11/19 11/11/19 18:59 06:59 18:59 Intake Total 1200 360 Balance 1200 360 Intake: Oral 1200 360 Other: # Voids 4 2 # Bowel Movements 1 0 Active Medications: Current Medications Acetaminophen (Tylenol) 650 mg PO Q4H PRN PRN Reason: Pain (Mild 1-3) Stop: 12/31/19 09:26 Last Admin: 11/09/19 09:35 Dose: 650 mg Acetaminophen (Tylenol Extra Strength) 1,000 mg PO Q6H PRN PRN Reason: Pain (Moderate 4-6) Stop: 12/31/19 09:26 Al Hydrox/Mg Hydrox/Simethicone (Maalox) 30 ml PO Q4HR PRN PRN Reason: GI DISTRESS Stop: 12/31/19 09:26 Dextrose (Glutose 40%) 18.75 gm PO PRN PRN PRN Reason: BS Below 70 if tolerate po Stop: 12/31/19 13:41 Glucagon (Glucagen) 1 mg IM PRN PRN PRN Reason: BS Below 70 if not tolerate po Stop: 12/31/19 13:41 Haloperidol (Haldol) 5 mg PO BID PRN; Protocol PRN Reason: Psychosis Stop: 12/31/19 16:59 Insulin Human Lispro (Humalog Insulin Sliding Scale) 0 units SUBQ ACHS [facility]; Protocol Stop: 01/01/20 16:29 Last Admin: 11/11/19 11:27 Dose: Not Given [place] Carbonate (Eskalith) 300 mg PO TID [facility]; Protocol Stop: 01/06/20 08:59 Last Admin: 11/11/19 13:17 Dose: 300 mg Lorazepam (Ativan) 0.5 mg PO Q4HR PRN; Protocol PRN Reason: Agitation Stop: 12/31/19 10:33 Last Admin: 11/11/19 08:29 Dose: 0.5 mg Magnesium Hydroxide (Milk Of Magnesia) 30 ml PO HS PRN PRN Reason: Constipation Multivitamins/Vitamin C (Theragran) 1 tab PO DAILY TOR Stop: 01/01/20 08:59 Last Admin: 11/11/19 08:29 Dose: 1 tab Quetiapine Fumarate (Seroquel) 400 mg PO BID [facility]OR; Protocol Stop: 12/31/19 16:59 Last Admin: 11/11/19 08:29 Dose: 400 mg Zolpidem Tartrate (Ambien) 5 mg PO HS PRN PRN Reason: Insomnia Stop: 12/31/19 09:26 Last Admin: 11/08/19 20:54 Dose: 5 mg General: alert HEENT: NC/AT, PERRLA, EOMI Neck: No JVD Lungs: CTAB Cardiovascular: RRR, Normal S1, Normal S2 Abdomen: soft Internal Medicine Assmt/Plan - Assessment Assessment: 1. DM/HTN 2. BIPOLAR 3. AGITATION - Plan Plan: CONTINUE SUPPORTIVE CARE REVIWED BLOOD SUGAR DIARY CONTINUE SUPPORTIVE CARE D/W R.N. Nutritional Asmnt/Malnutr-PDOC - Dietary Evaluation Malnutrition Findings (Please click <Entered> for more info): Nutritional Asmnt/Malnutrition Start: 11/05/19 14: 11 Text: Status: Complete Freq: Protocol: Document 11/05/19 14:11 INES (Rec: 11/05/19 14:14 INES [email or web address]) Nutritional Asmnt/Malnutrition Patient General Information Nutritional Screening Moderate Risk Diagnosis Psychosis Pertinent Medical Hx/Surgical Hx COPD, DM, Schizophrenia Subjective Information Pt is a 59-year-old female admitted on 10/31 d/t agitation with screaming. Pt is eating an estimated 90% of meals Per Meal/Nutrition Activity Record . Dietary is currently providing an estimated 1700 kcals and 90 gm Pro, per Pt PO intake this is providing an estimated 1500 kcals and 80gm Pro to meet 100% kcal and 100+ % Pro needs. Visited pt in room, pt was asleep and did not stir when name was called. Anthropometrics HT: 54 WT: 126 LB (57.27 kg) BMI: 21.63 (normal) GI/ Skin Integrity GI: WNL, Soft, Non-tender BM: 11/03 x1 I/O: 1840/Not Noted Skin: WNL, Intact Cheko: 20 Diet Order: [facility] Estimated Energy Needs: ( Geriatric, CBW) 2163-1246 kcals (25-30 kcals/ kg) 60-70g Pro (1.0-1.2 g/kg) 0282-6974 ml (25-30 ml/kg) Current Diet Order/ Nutrition Support [facility] Pertinent Medications Maalox (PRN), Glutose 40% (PRN ), INS-SS, MOM (PRN), Theragran Pertinent Labs 10/31: POC Glucose 100, HDL 43, A1c 5.2%, K 3.2, Glucose 130, Ca 8.3, GFR 53, Alk Phos 121, Alb 3.2 Nutritional Hx/Data Height 1.63 m Height (Calculated Centimeters) 162.6 Current Weight (lbs) 57.153 kg Weight (Calculated Kilograms) 57.2 Weight (Calculated Grams) 26627.6 [place] Body Weight 120 LB (54.55 kg) % [place] Body Weight 105 Body Mass Index (BMI) 21.6 Weight Status Approriate GI Symptoms GI Symptoms None Last BM 11/03 x1 Skin Integrity/Comment: Skin: WNL, Intact Cheko: 20 Estimated Nutritional Goals BEE in Kcals: Using Current wt Calories/Kcals/Kg 25-30 Kcals Calculated 2337-0192 Protein: Using Current wt Protein g/k.0-1.2 Protein Calculated 60-70 Fluid: ml 2132-4272 ml (25-30 ml/kg) Nutritional Problem 1. Problem Problem Impaired nutrient utilization Etiology r/t endocrine dysfunction Signs/Symptoms: aeb Hx DM, labs (10/31) glucose 130, A1c 5.2%. Malnutrition Related to Morbid Obesity Malnutrition related to morbid obesity No Intervention/Recommendation Comments 1.Continue [facility] diet as tolerated. 2.Continue antihyperglycemic medication for glucose control per MD order. Expected Outcomes/Goals Expected Outcomes/Goals 1.PO intake to continue to meet >75% of estimated nutritional needs. 2.Monitor PO intake, wt, nutrition related labs, and skin integrity. 3.F/U as low risk in 7-10 days , 11/11-11/14.
--- NOTE | 2019-11-11 18:06 | Progress Notes ---
DATE: 11/11/2019 SUBJECTIVE: Staff was spoken to. The patient is interviewed. Mood is noted to be less irritable. The patient continues to be paranoid. Insight and judgment are noted to be improving. Impulse control seems to be fair at this time, but the patient is reported to have been very suspicious of taking the medications yesterday, but today he seems to be doing a little bit better. Sleep and appetite are noted to be improving. No side effects to the medications are noted. ASSESSMENT: The patient's psychosis is resolving. PLAN: To continue the patient with the supportive therapy, encouraged the patient to verbalize the concerns rather than to act out. JOB# [id number]
--- NOTE | 2019-11-11 20:44 | Progress Notes ---
DATE: 11/10/2019 PSYCHOLOGY PROGRESS NOTE SUBJECTIVE: The patient is seen at the door to her room. The patient is interviewed. Case has been discussed with staff. Staff reports the patient is intrusive and demanding most of the time as well as pacing on the unit. The patient is argumentative with this sports writer and is refusing to answer clinical questions. OBJECTIVE: Mood is irritable. Affect is constricted. Thought process shows to be confused including perseveration on discharge. The patient denied any auditory or visual hallucinations. The patient denies any suicidal ideation, plan or intention. The patient's behavior has been impulsive and is frustrated and easily agitated according to staff. ASSESSMENT: The patient's impulsivity and psychosis persist. TREATMENT PLAN: The patient is compliant with current medications; however, the patient's mood fluctuations continue. We provided remotivation for the patient to become compliant and stay compliant with all aspects of her care and treatment. We encouraged the patient to verbalize her concerns versus acting out and refusing care. We provided reality differentiation and reality integration. We provided coping strategies for phase of life issues as well. We will follow up in 2-3 days to continue the present treatment if the patient is able to demonstrate the capacity to benefit from psychology services. We will reassess the medical necessity for continued psychology services on the next visit. JOB# [id number] JAMES
[2019-11-12] MEDS: INSULIN LISPRO SLIDING SCALE 100 UNITS/ML UNIT SUBQ SCH ×4 (07:37→20:12)
[2019-11-12] MEDS: Multivitamin Tab PO SCH (08:37)
--- NOTE | 2019-11-12 13:59 | Internal Medicine Prog Note ---
Internal Medicine Subjective - Subjective Service Date: 11/12/19 Patient is:: awake Per staff patient has:: no adverse event, no episodes of fall Internal Medicine Objective - Results Recent Labs: Laboratory Last Values POC Glucose 75 MG/DL (70 - 105) 11/11/19 11:25 - Physical Exam Vitals and I&O: Vital Signs Temp 0 F 11/12/19 05:56 Pulse 85 11/05/19 13:00 Resp 20 11/11/19 14:00 BP 96/53 11/01/19 10:52 Pulse Ox 94 11/05/19 13:00 Intake & Output 11/11/19 11/12/19 11/12/19 18:59 06:59 18:59 Intake Total 1200 120 Balance 1200 120 Intake: Oral 960 120 Other 240 Other: # Voids 3 3 # Bowel Movements 0 0 Active Medications: Current Medications Acetaminophen (Tylenol) 650 mg PO Q4H PRN PRN Reason: Pain (Mild 1-3) Stop: 12/31/19 09:26 Last Admin: 11/09/19 09:35 Dose: 650 mg Acetaminophen (Tylenol Extra Strength) 1,000 mg PO Q6H PRN PRN Reason: Pain (Moderate 4-6) Stop: 12/31/19 09:26 Last Admin: 11/11/19 18:34 Dose: 1,000 mg Al Hydrox/Mg Hydrox/Simethicone (Maalox) 30 ml PO Q4HR PRN PRN Reason: GI DISTRESS Stop: 12/31/19 09:26 Dextrose (Glutose 40%) 18.75 gm PO PRN PRN PRN Reason: BS Below 70 if tolerate po Stop: 12/31/19 13:41 Glucagon (Glucagen) 1 mg IM PRN PRN PRN Reason: BS Below 70 if not tolerate po Stop: 12/31/19 13:41 Haloperidol (Haldol) 5 mg PO BID PRN; Protocol PRN Reason: Psychosis Stop: 12/31/19 16:59 Insulin Human Lispro (Humalog Insulin Sliding Scale) 0 units SUBQ ACHS [facility]; Protocol Stop: 01/01/20 16:29 Last Admin: 11/12/19 11:25 Dose: Not Given [place] Carbonate (Eskalith) 300 mg PO TID [facility]; Protocol Stop: 01/06/20 08:59 Last Admin: 11/12/19 13:18 Dose: Not Given Lorazepam (Ativan) 0.5 mg PO Q4HR PRN; Protocol PRN Reason: Agitation Stop: 12/31/19 10:33 Last Admin: 11/11/19 20:32 Dose: 0.5 mg Magnesium Hydroxide (Milk Of Magnesia) 30 ml PO HS PRN PRN Reason: Constipation Multivitamins/Vitamin C (Theragran) 1 tab PO DAILY TOR Stop: 01/01/20 08:59 Last Admin: 11/12/19 08:37 Dose: 1 tab Quetiapine Fumarate (Seroquel) 400 mg PO BID TOR; Protocol Stop: 12/31/19 16:59 Last Admin: 11/12/19 08:37 Dose: 400 mg Zolpidem Tartrate (Ambien) 5 mg PO HS PRN PRN Reason: Insomnia Stop: 12/31/19 09:26 Last Admin: 11/08/19 20:54 Dose: 5 mg General: alert HEENT: NC/AT, PERRLA, EOMI Neck: No JVD Lungs: CTAB Cardiovascular: RRR, Normal S1, Normal S2 Abdomen: soft Extremities: clear Internal Medicine Assmt/Plan - Assessment Assessment: 1. DM/HTN 2. BIPOLAR 3. AGITATION - Plan Plan: CONTINUE SUPPORTIVE CARE REVIWED BLOOD SUGAR DIARY CONTINUE SUPPORTIVE CARE D/W R.N. Nutritional Asmnt/Malnutr-PDOC - Dietary Evaluation Malnutrition Findings (Please click <Entered> for more info): Nutritional Asmnt/Malnutrition Start: 11/05/19 14: 11 Text: Status: Complete Freq: Protocol: Document 11/05/19 14:11 INES (Rec: 11/05/19 14:14 INES [email or web address]) Nutritional Asmnt/Malnutrition Patient General Information Nutritional Screening Moderate Risk Diagnosis Psychosis Pertinent Medical Hx/Surgical Hx COPD, DM, Schizophrenia Subjective Information Pt is a 59-year-old female admitted on 10/31 d/t agitation with screaming. Pt is eating an estimated 90% of meals Per Meal/Nutrition Activity Record . Dietary is currently providing an estimated 1700 kcals and 90 gm Pro, per Pt PO intake this is providing an estimated 1500 kcals and 80gm Pro to meet 100% kcal and 100+ % Pro needs. Visited pt in room, pt was asleep and did not stir when name was called. Anthropometrics HT: 54 WT: 126 LB (57.27 kg) BMI: 21.63 (normal) GI/ Skin Integrity GI: WNL, Soft, Non-tender BM: 11/03 x1 I/O: 1840/Not Noted Skin: WNL, Intact Cheko: 20 Diet Order: [facility] Estimated Energy Needs: ( Geriatric, CBW) 7327-1638 kcals (25-30 kcals/ kg) 60-70g Pro (1.0-1.2 g/kg) 3771-5332 ml (25-30 ml/kg) Current Diet Order/ Nutrition Support [facility] Pertinent Medications Maalox (PRN), Glutose 40% (PRN ), INS-SS, MOM (PRN), Theragran Pertinent Labs 10/31: POC Glucose 100, HDL 43, A1c 5.2%, K 3.2, Glucose 130, Ca 8.3, GFR 53, Alk Phos 121, Alb 3.2 Nutritional Hx/Data Height 1.63 m Height (Calculated Centimeters) 162.6 Current Weight (lbs) 57.153 kg Weight (Calculated Kilograms) 57.2 Weight (Calculated Grams) 74336.6 [place] Body Weight 120 LB (54.55 kg) % [place] Body Weight 105 Body Mass Index (BMI) 21.6 Weight Status Approriate GI Symptoms GI Symptoms None Last BM 11/03 x1 Skin Integrity/Comment: Skin: WNL, Intact Cheko: 20 Estimated Nutritional Goals BEE in Kcals: Using Current wt Calories/Kcals/Kg 25-30 Kcals Calculated 2944-6151 Protein: Using Current wt Protein g/k.0-1.2 Protein Calculated 60-70 Fluid: ml 3029-6216 ml (25-30 ml/kg) Nutritional Problem 1. Problem Problem Impaired nutrient utilization Etiology r/t endocrine dysfunction Signs/Symptoms: aeb Hx DM, labs (10/31) glucose 130, A1c 5.2%. Malnutrition Related to Morbid Obesity Malnutrition related to morbid obesity No Intervention/Recommendation Comments 1.Continue [facility] diet as tolerated. 2.Continue antihyperglycemic medication for glucose control per MD order. Expected Outcomes/Goals Expected Outcomes/Goals 1.PO intake to continue to meet >75% of estimated nutritional needs. 2.Monitor PO intake, wt, nutrition related labs, and skin integrity. 3.F/U as low risk in 7-10 days , 11/11-11/14.
--- NOTE | 2019-11-12 16:06 | Progress Notes ---
DATE: 11/12/2019 PSYCHIATRIC PROGRESS NOTE SUBJECTIVE: Staff was spoken to. The patient is interviewed. Mood is noted to be irritable. Affect is constricted. Insight and judgment are noted to be still impaired. Impulse control is noted to be limited. The patient is reported to have been screaming and yelling and has been having difficult time to cope with the stress. The patient is currently on lithium and the patient has been having difficult time to cope with the stress. No side effects to the medications are noted. Mood swings are still a problem and hence it is decided to get the lithium level done and if the level is ____, possibly increase the lithium to contain the patient's impulsivity. JOB# [id number]
[2019-11-13] MEDS: INSULIN LISPRO SLIDING SCALE 100 UNITS/ML UNIT SUBQ SCH ×4 (06:46→20:52)
[2019-11-13] MEDS: Multivitamin Tab PO SCH (09:01)
[2019-11-13] MEDS ORDERED: Haloperidol Lactate 5 mg/mL 1mL Vial ONE (12:32)
--- NOTE | 2019-11-13 22:08 | Progress Notes ---
DATE: 11/12/2019 PSYCHOLOGY PROGRESS NOTE SUBJECTIVE: The patient is seen at the nurse's station. The patient is requesting to use the telephone to call out to a friend. The patient provided answers to some of the clinical questions but responded minimally. The staff reports that the patient continues to have screaming and yelling episodes when she does not get her way. Mood fluctuations are still present and the patient's impulse control is still poor. The patient is guarded, suspicious and shuts down emotionally. OBJECTIVE: Mood is irritable. Affect is constricted. Thought process shows to be concrete and markedly tangential. The patient denied any suicidal ideation or wish to harm herself or others. The patient denied any delusions; however, paranoid ideation persists. Mood fluctuations persist. The patient's behavior has been isolative. The patient paces on the unit at times and then returns to her room and shuts the door and does not answer to staff knocking at the door or allow staff to enter into her room. ASSESSMENT: Mood swings persist, impulsivity persists, psychosis persists. Poor compliance with treatment. PLAN: We provided remotivation for the patient to become compliant and stay compliant with all aspects of her care and treatment. We provided reality differentiation and integration. We provided coping strategies along with cognitive refocusing and de-escalation for the patient to be able to focus on reality-based thoughts versus delusional thought. The patient is currently on lithium according to the attending psychiatrist. We will follow up in 2-3 days if the patient remains on the unit and is willing to participate in this type of treatment. If the patient is not in agreement or refuses to participate in psychology services, we will discontinue this service. JOB# [id number] JAMES
--- NOTE | 2019-11-14 01:10 | Progress Notes ---
DATE: 11/13/2019 PSYCHIATRIC PROGRESS NOTE SUBJECTIVE: Staff was spoken to. The patient is interviewed. Mood is noted to be irritable. Affect is constricted. Insight and judgment at this time are noted to be still impaired. Impulse control is noted to be limited. Coping skills are noted to be limited. The patient is screaming and yelling. The patient has been going off on a tangent. The patient has to be given a dose of Haldol yesterday to contain the patient's behavior. The patient has no insight into her illness. ASSESSMENT: The patient is still psychotic. PLAN: To continue the patient with the current medications. I encouraged the patient to verbalize the concerns rather than to act out. JOB# [id number]
[2019-11-14] MEDS: INSULIN LISPRO SLIDING SCALE 100 UNITS/ML UNIT SUBQ SCH ×4 (06:30→20:14)
[2019-11-14] MEDS: Multivitamin Tab PO SCH (08:21)
--- NOTE | 2019-11-14 10:10 | Progress Notes ---
DATE: 11/14/2019 SUBJECTIVE: Staff was spoken to. The patient is interviewed. Mood is noted to be irritable. Affect is constricted. Insight and judgment at this time are noted to be still impaired. Impulse control is noted to be limited. Coping skills are noted to be limited. The patient has no insight into her illness. The patient is currently on Haldol and lithium. The patient is still coming up with acute mood swings. ASSESSMENT: The patient is still irritable and having mood swings. PLAN: To increase the dose on the lithium to 600 mg twice a day and follow the patient with the supportive therapy. Please note that the patient is not ready to be discharged to a lower level of care in view of her acute agitation. [facility]# [id number]
--- NOTE | 2019-11-14 12:21 | Internal Medicine Prog Note ---
Internal Medicine Subjective - Subjective Service Date: 11/14/19 Patient is:: awake Per staff patient has:: no adverse event, no episodes of fall Internal Medicine Objective - Results Recent Labs: Laboratory Last Values POC Glucose 75 MG/DL (70 - 105) 11/11/19 11:25 - Physical Exam Vitals and I&O: Vital Signs Temp 0 F 11/12/19 05:56 Pulse 85 11/05/19 13:00 Resp 18 11/14/19 08:00 BP 96/53 11/01/19 10:52 Pulse Ox 94 11/05/19 13:00 Intake & Output 11/13/19 11/14/19 11/14/19 18:59 06:59 18:59 Intake Total 900 120 Balance 900 120 Intake: Oral 900 120 Other: # Voids 3 2 # Bowel Movements 1 Active Medications: Current Medications Acetaminophen (Tylenol) 650 mg PO Q4H PRN PRN Reason: Pain (Mild 1-3) Stop: 12/31/19 09:26 Last Admin: 11/09/19 09:35 Dose: 650 mg Acetaminophen (Tylenol Extra Strength) 1,000 mg PO Q6H PRN PRN Reason: Pain (Moderate 4-6) Stop: 12/31/19 09:26 Last Admin: 11/11/19 18:34 Dose: 1,000 mg Al Hydrox/Mg Hydrox/Simethicone (Maalox) 30 ml PO Q4HR PRN PRN Reason: GI DISTRESS Stop: 12/31/19 09:26 Last Admin: 11/14/19 09:56 Dose: 30 ml Dextrose (Glutose 40%) 18.75 gm PO PRN PRN PRN Reason: BS Below 70 if tolerate po Stop: 12/31/19 13:41 Glucagon (Glucagen) 1 mg IM PRN PRN PRN Reason: BS Below 70 if not tolerate po Stop: 12/31/19 13:41 Haloperidol (Haldol) 5 mg PO BID PRN; Protocol PRN Reason: Psychosis Stop: 12/31/19 16:59 Insulin Human Lispro (Humalog Insulin Sliding Scale) 0 units SUBQ ACHS [facility]; Protocol Stop: 01/01/20 16:29 Last Admin: 11/14/19 11:25 Dose: Not Given [place] Carbonate (Eskalith) 600 mg PO BID [facility]; Protocol Stop: 01/13/20 08:59 Last Admin: 11/14/19 09:57 Dose: 600 mg Lorazepam (Ativan) 0.5 mg PO Q4HR PRN; Protocol PRN Reason: Agitation Stop: 12/31/19 10:33 Last Admin: 11/11/19 20:32 Dose: 0.5 mg Magnesium Hydroxide (Milk Of Magnesia) 30 ml PO HS PRN PRN Reason: Constipation Multivitamins/Vitamin C (Theragran) 1 tab PO DAILY TOR Stop: 01/01/20 08:59 Last Admin: 11/14/19 08:21 Dose: 1 tab Quetiapine Fumarate (Seroquel) 400 mg PO BID TOR; Protocol Stop: 12/31/19 16:59 Last Admin: 11/14/19 08:21 Dose: 400 mg Zolpidem Tartrate (Ambien) 5 mg PO HS PRN PRN Reason: Insomnia Stop: 12/31/19 09:26 Last Admin: 11/08/19 20:54 Dose: 5 mg General: alert HEENT: NC/AT, PERRLA, EOMI Neck: No JVD Lungs: CTAB Cardiovascular: RRR, Normal S1, Normal S2 Abdomen: soft Extremities: clear Internal Medicine Assmt/Plan - Assessment Assessment: 1. DM/HTN 2. BIPOLAR 3. AGITATION - Plan Plan: CONTINUE SUPPORTIVE CARE REVIWED BLOOD SUGAR DIARY CONTINUE SUPPORTIVE CARE D/W R.N. Nutritional Asmnt/Malnutr-PDOC - Dietary Evaluation Malnutrition Findings (Please click <Entered> for more info): Nutritional Asmnt/Malnutrition Start: 11/05/19 14: 11 Text: Status: Complete Freq: Protocol: Document 11/05/19 14:11 INES (Rec: 11/05/19 14:14 INES [email or web address]) Nutritional Asmnt/Malnutrition Patient General Information Nutritional Screening Moderate Risk Diagnosis Psychosis Pertinent Medical Hx/Surgical Hx COPD, DM, Schizophrenia Subjective Information Pt is a 59-year-old female admitted on 10/31 d/t agitation with screaming. Pt is eating an estimated 90% of meals Per Meal/Nutrition Activity Record . Dietary is currently providing an estimated 1700 kcals and 90 gm Pro, per Pt PO intake this is providing an estimated 1500 kcals and 80gm Pro to meet 100% kcal and 100+ % Pro needs. Visited pt in room, pt was asleep and did not stir when name was called. Anthropometrics HT: 54 WT: 126 LB (57.27 kg) BMI: 21.63 (normal) GI/ Skin Integrity GI: WNL, Soft, Non-tender BM: 11/03 x1 I/O: 1840/Not Noted Skin: WNL, Intact Cheko: 20 Diet Order: [facility] Estimated Energy Needs: ( Geriatric, CBW) 3504-2438 kcals (25-30 kcals/ kg) 60-70g Pro (1.0-1.2 g/kg) 5692-9765 ml (25-30 ml/kg) Current Diet Order/ Nutrition Support [facility] Pertinent Medications Maalox (PRN), Glutose 40% (PRN ), INS-SS, MOM (PRN), Theragran Pertinent Labs 10/31: POC Glucose 100, HDL 43, A1c 5.2%, K 3.2, Glucose 130, Ca 8.3, GFR 53, Alk Phos 121, Alb 3.2 Nutritional Hx/Data Height 1.63 m Height (Calculated Centimeters) 162.6 Current Weight (lbs) 57.153 kg Weight (Calculated Kilograms) 57.2 Weight (Calculated Grams) 00744.6 [place] Body Weight 120 LB (54.55 kg) % [place] Body Weight 105 Body Mass Index (BMI) 21.6 Weight Status Approriate GI Symptoms GI Symptoms None Last BM 11/03 x1 Skin Integrity/Comment: Skin: WNL, Intact Cheko: 20 Estimated Nutritional Goals BEE in Kcals: Using Current wt Calories/Kcals/Kg 25-30 Kcals Calculated 0799-3655 Protein: Using Current wt Protein g/k.0-1.2 Protein Calculated 60-70 Fluid: ml 7516-4530 ml (25-30 ml/kg) Nutritional Problem 1. Problem Problem Impaired nutrient utilization Etiology r/t endocrine dysfunction Signs/Symptoms: aeb Hx DM, labs (10/31) glucose 130, A1c 5.2%. Malnutrition Related to Morbid Obesity Malnutrition related to morbid obesity No Intervention/Recommendation Comments 1.Continue [facility] diet as tolerated. 2.Continue antihyperglycemic medication for glucose control per MD order. Expected Outcomes/Goals Expected Outcomes/Goals 1.PO intake to continue to meet >75% of estimated nutritional needs. 2.Monitor PO intake, wt, nutrition related labs, and skin integrity. 3.F/U as low risk in 7-10 days , 11/11-11/14.
[2019-11-15] MEDS: INSULIN LISPRO SLIDING SCALE 100 UNITS/ML UNIT SUBQ SCH ×4 (06:37→20:39)
[2019-11-15] MEDS: Multivitamin Tab PO SCH (08:02)
--- NOTE | 2019-11-15 10:03 | Progress Notes ---
DATE: 11/15/2019 SUBJECTIVE: Staff was spoken to. The patient is interviewed. Mood is noted to be irritable. Affect is constricted. The patient is screaming and yelling. Insight and judgment at this time are noted to be still impaired. Impulse control is noted to be limited. We have been requesting for the lithium level on this patient and the patient has been having difficult time to cope with the stress. The patient's lithium was increased to 600 mg b.i.d. yesterday and the patient is going to be given the Haldol on a regular basis at this time along with Seroquel that she is getting. Since the Seroquel is not working and the patient continues to be screaming and yelling and has been pacing on the unit and it is decided to continue the lithium, Seroquel, and haloperidol. I encouraged the patient to verbalize the concerns rather than to act out. JOB# [id number]
--- NOTE | 2019-11-16 00:34 | Progress Notes ---
DATE: 11/15/2019 PSYCHOLOGY PROGRESS NOTE SUBJECTIVE: The patient is seen standing in the doorway of her room after knocking on the patient's door multiple times. The patient continues to be irritable as well as avoidant. Staff reports the patient continues to have screaming and yelling episodes and that the patient continues to act out verbally. The patient presents as argumentative and is responding to internal stimuli. The patient seems to be preoccupied with this inner dialogue and is talking to herself. This is observed to be word salad with profanity. The patient is not making much sense; however, the patient is able to respond to cognitive refocusing if persistently and repeatedly applied. OBJECTIVE: Mood is irritable and angry as well as fluctuating. Affect is labile. Thought process shows to include responding to internal stimuli and talking to self that appears to be incoherent. There are periods of confusion; however, the patient is able to at times respond to cognitive refocusing in a concrete fashion. The patient is highly distractible as stated above for those reasons. The patient did not answer the questions about experiencing suicidal or homicidal ideation. The patient is displaying symptomatology of paranoid ideation. The patient's suspiciousness persists. Staff reports the patient paces on the unit with screaming and yelling episodes. Staff reports the patient had been given Haldol yesterday for emergency medicine due to uncontrollable behavior. ASSESSMENT: The patient's psychosis and impulsivity persist. The patient's uncontrollable behavior and poor redirection persist. The patient is noncompliant with the milieu therapy, but accepts the medication. TREATMENT PLAN: The attending psychiatrist notes continuing the haloperidol on a regular basis along with lithium and Seroquel. We encouraged the patient to verbalize her concerns versus acting out. We provided de-escalation for the patient to be able to interact appropriately with staff and respond to staff direction. The patient was unable to contract for safety as well as contract for interaction with staff and follow through with the treatment protocols behaviorally. We provided reality orientation, differentiation and integration. We provided coping strategies for chronic severe mental illness. Staff reports the patient is not making much improvement. We will follow up in 2-3 days to continue the present treatment if the patient is able to demonstrate the capacity to benefit from psychology services as well as behavioral therapy. We will reassess and reevaluate the patient's capacity to benefit as well as medical necessity for this type of treatment on the next visit. JOB# [id number] JAMES
[2019-11-16] MEDS: INSULIN LISPRO SLIDING SCALE 100 UNITS/ML UNIT SUBQ SCH ×5 (06:47→21:32)
[2019-11-16] MEDS: Multivitamin Tab PO SCH (08:28)
--- NOTE | 2019-11-16 22:24 | Progress Notes ---
DATE: 11/16/2019 SUBJECTIVE: Staff was spoken to. The patient is interviewed. Mood is noted to be irritable. Affect is constricted. Insight and judgment at this time are noted to be still impaired. Impulse control is noted to be limited. Coping skills are noted to be limited. The patient is still testing the limits. The patient screams and yells . In addition to the lithium, the patient has been placed on the Haldol to contain her paranoia. The patient has been able to tolerate the medication so far, no side effects to medications are noted. PLAN: To continue the patient with the current medications and followup. JOB# [id number]
[2019-11-17] MEDS: INSULIN LISPRO SLIDING SCALE 100 UNITS/ML UNIT SUBQ SCH ×2 (08:12→11:30)
[2019-11-17] MEDS: Multivitamin Tab PO SCH ×2 (08:39→08:44)
--- NOTE | 2019-11-17 11:12 | Internal Medicine Prog Note ---
Internal Medicine Subjective - Subjective Service Date: 11/17/19 Patient is:: awake Per staff patient has:: no adverse event, no episodes of fall Internal Medicine Objective - Results Recent Labs: Laboratory Last Values POC Glucose 75 MG/DL (70 - 105) 11/11/19 11:25 - Physical Exam Vitals and I&O: Vital Signs Temp 0 F 11/12/19 05:56 Pulse 85 11/05/19 13:00 Resp 18 11/16/19 07:39 BP 96/53 11/01/19 10:52 Pulse Ox 94 11/05/19 13:00 Intake & Output 11/16/19 11/17/19 11/17/19 18:59 06:59 18:59 Intake Total 1000 660 Balance 1000 660 Intake: Oral 1000 660 Other: # Voids 1 # Bowel Movements 0 Active Medications: Current Medications Acetaminophen (Tylenol) 650 mg PO Q4H PRN PRN Reason: Pain (Mild 1-3) Stop: 12/31/19 09:26 Last Admin: 11/09/19 09:35 Dose: 650 mg Acetaminophen (Tylenol Extra Strength) 1,000 mg PO Q6H PRN PRN Reason: Pain (Moderate 4-6) Stop: 12/31/19 09:26 Last Admin: 11/11/19 18:34 Dose: 1,000 mg Al Hydrox/Mg Hydrox/Simethicone (Maalox) 30 ml PO Q4HR PRN PRN Reason: GI DISTRESS Stop: 12/31/19 09:26 Last Admin: 11/14/19 09:56 Dose: 30 ml Dextrose (Glutose 40%) 18.75 gm PO PRN PRN PRN Reason: BS Below 70 if tolerate po Stop: 12/31/19 13:41 Diphenhydramine HCl (Benadryl) 50 mg PO Q6HR PRN PRN Reason: EPS Stop: 01/14/20 10:15 Glucagon (Glucagen) 1 mg IM PRN PRN PRN Reason: BS Below 70 if not tolerate po Stop: 12/31/19 13:41 Haloperidol (Haldol) 5 mg PO Q6HR PRN; Protocol PRN Reason: Agitation Stop: 01/14/20 11:59 Haloperidol (Haldol) 5 mg PO BID TOR; Protocol Stop: 01/14/20 16:59 Last Admin: 11/17/19 08:39 Dose: Not Given Insulin Human Lispro (Humalog Insulin Sliding Scale) 0 units SUBQ ACHS [facility]; Protocol Stop: 01/01/20 16:29 Last Admin: 11/17/19 08:12 Dose: Not Given [place] Carbonate (Eskalith) 600 mg PO BID [facility]; Protocol Stop: 01/13/20 08:59 Last Admin: 11/17/19 08:39 Dose: 600 mg Lorazepam (Ativan) 0.5 mg PO Q4HR PRN; Protocol PRN Reason: Agitation Stop: 12/31/19 10:33 Last Admin: 11/11/19 20:32 Dose: 0.5 mg Magnesium Hydroxide (Milk Of Magnesia) 30 ml PO HS PRN PRN Reason: Constipation Multivitamins/Vitamin C (Theragran) 1 tab PO DAILY TOR Stop: 01/01/20 08:59 Last Admin: 11/17/19 08:44 Dose: Not Given Quetiapine Fumarate (Seroquel) 400 mg PO BID [facility]; Protocol Stop: 12/31/19 16:59 Last Admin: 11/17/19 08:39 Dose: 400 mg Zolpidem Tartrate (Ambien) 5 mg PO HS PRN PRN Reason: Insomnia Stop: 12/31/19 09:26 Last Admin: 11/08/19 20:54 Dose: 5 mg General: alert HEENT: NC/AT, PERRLA, EOMI Neck: No JVD Lungs: CTAB Cardiovascular: RRR, Normal S1, Normal S2 Abdomen: soft Extremities: clear Internal Medicine Assmt/Plan - Assessment Assessment: 1. DM/HTN 2. BIPOLAR 3. AGITATION - Plan Plan: discharge to [facility] discussed with pediatric social worker discussed with rgeovanna Nutritional Asmnt/Malnutr-PDOC - Dietary Evaluation Malnutrition Findings (Please click <Entered> for more info): Nutritional Asmnt/Malnutrition Start: 11/05/19 14: 11 Text: Status: Complete Freq: Protocol: Document 11/05/19 14:11 INES (Rec: 11/05/19 14:14 INES [email or web address]) Nutritional Asmnt/Malnutrition Patient General Information Nutritional Screening Moderate Risk Diagnosis Psychosis Pertinent Medical Hx/Surgical Hx COPD, DM, Schizophrenia Subjective Information Pt is a 59-year-old female admitted on 10/31 d/t agitation with screaming. Pt is eating an estimated 90% of meals Per Meal/Nutrition Activity Record . Dietary is currently providing an estimated 1700 kcals and 90 gm Pro, per Pt PO intake this is providing an estimated 1500 kcals and 80gm Pro to meet 100% kcal and 100+ % Pro needs. Visited pt in room, pt was asleep and did not stir when name was called. Anthropometrics HT: 54 WT: 126 LB (57.27 kg) BMI: 21.63 (normal) GI/ Skin Integrity GI: WNL, Soft, Non-tender BM: 11/03 x1 I/O: 1840/Not Noted Skin: WNL, Intact Cheko: 20 Diet Order: [facility] [place] Estimated Energy Needs: ( Geriatric, CBW) 3216-1107 kcals (25-30 kcals/ kg) 60-70g Pro (1.0-1.2 g/kg) 6611-5489 ml (25-30 ml/kg) Current Diet Order/ Nutrition Support [facility] [place] Pertinent Medications Maalox (PRN), Glutose 40% (PRN ), INS-SS, MOM (PRN), Theragran Pertinent Labs 10/31: POC Glucose 100, HDL 43, A1c 5.2%, K 3.2, Glucose 130, Ca 8.3, GFR 53, Alk Phos 121, Alb 3.2 Nutritional Hx/Data Height 1.63 m Height (Calculated Centimeters) 162.6 Current Weight (lbs) 57.153 kg Weight (Calculated Kilograms) 57.2 Weight (Calculated Grams) 33279.6 [place] Body Weight 120 LB (54.55 kg) % [place] Body Weight 105 Body Mass Index (BMI) 21.6 Weight Status Approriate GI Symptoms GI Symptoms None Last BM 11/03 x1 Skin Integrity/Comment: Skin: WNL, Intact Cheko: 20 Estimated Nutritional Goals BEE in Kcals: Using Current wt Calories/Kcals/Kg 25-30 Kcals Calculated 3892-8057 Protein: Using Current wt Protein g/k.0-1.2 Protein Calculated 60-70 Fluid: ml 2779-7599 ml (25-30 ml/kg) Nutritional Problem 1. Problem Problem Impaired nutrient utilization Etiology r/t endocrine dysfunction Signs/Symptoms: aeb Hx DM, labs (10/31) glucose 130, A1c 5.2%. Malnutrition Related to Morbid Obesity Malnutrition related to morbid obesity No Intervention/Recommendation Comments 1.Continue CCHO diet as tolerated. 2.Continue antihyperglycemic medication for glucose control per MD order. Expected Outcomes/Goals Expected Outcomes/Goals 1.PO intake to continue to meet >75% of estimated nutritional needs. 2.Monitor PO intake, wt, nutrition related labs, and skin integrity. 3.F/U as low risk in 7-10 days , 11/11-11/14.
[2019-11-17] MEDS ORDERED: Haloperidol Lactate 5 mg/mL 1mL Vial ONE (15:16)
--- NOTE | 2019-11-17 23:17 | Progress Notes ---
DATE: 11/17/2019 SUBJECTIVE: Staff was spoken to. The patient is interviewed. Mood is noted to be less irritable. Affect is appropriate. Not suicidal or homicidal. Insight and judgment are noted to be improving. Impulse control seems to be fair. No side effects to the medications are noted. The patient has been able to participate in the groups and verbalize the concerns. ASSESSMENT: The patient is stabilizing. PLAN: To discharge the patient to [facility] for further followup. JOB# [id number]
--- NOTE | 2019-11-18 10:36 | Progress Notes ---
DATE: 11/17/2019 PSYCHOLOGY PROGRESS NOTE SUBJECTIVE: The patient is seen standing outside of her room. The patient is interviewed. Case has been discussed with staff. The patient presents as less irritable this visit. The patient denied any suicidal or homicidal ideation. Staff reports the patient's yelling episodes are lessening in frequency and intensity. The patient is asking again to be discharged. OBJECTIVE: Mood is irritable and guarded. Affect is constricted. Thought process shows to be concrete. There is still some evidence of suspiciousness and the patient talking to herself and responding to internal stimuli; however, not as frequently as before. The patient denied any suicidal or homicidal ideation, plan or intention. The patient has been compliant with the medication. ASSESSMENT: It appears the patient may be stabilizing. PLAN: Staff reports the patient is scheduled to discharge today and no followup is indicated. We provided coping strategies for chronic severe mental illness. We encouraged the patient and provided remotivation for the patient to follow through with staff direction at her placement and to be compliant with all aspects of her care and treatment versus acting out and refusing care. Prognosis is fair to poor. Thank you, Dr. Khoury for this consult and the opportunity to participate in this patient's care during her hospital course of treatment. [facility]# [id number] JAMES
== END 2019-11-17 15:30 | DRG 885 ==
LOC: GERO 06:00 → UNDODISIN 11-06 16:45
PROVIDERS: ADMIT Psychiatry & Neurology Psychiatry; ATTEND Psychiatry & Neurology Psychiatry
DX: F31.60 Bipolar disorder, current episode mixed, unspecified (principal); R45.851 Suicidal ideations; F25.9 Schizoaffective disorder, unspecified; E11.9 Type 2 diabetes mellitus without complications; I10 Essential (primary) hypertension; J44.9 Chronic obstructive pulmonary disease, unspecified
CPT/HCPCS: 82948-90; 83036-90; 90899; G0410; J1200; J1630; Z7610